=== PATIENT | female | born 1995 | race Caucasian/White ===

== ENCOUNTER 2022-04-08 12:31 | Outpatient (CLI) | payer OTHER, SELFPAY ==
[2022-04-08 19:22] LABS: SARS PCR* Negative SARS-CoV-2 (Negative)
== END 2022-04-08 12:32 | disposition home or self-care (01) ==
LOC: LONREF 12:32
PROVIDERS: PCP Family Medicine; Visit Provider Family Medicine
DX: Z20.822 Contact with and (suspected) exposure to COVID-19 (principal); R68.89 Other general symptoms and signs
CPT/HCPCS: 87635

== ENCOUNTER 2022-05-10 09:57 | Outpatient (CLI) | payer OTHER, SELFPAY ==
--- NOTE | 2022-05-10 10:15 | CRLHL7_ITS ---
For Patients: As a result of the Century Cures Act, medical imaging exams and procedure reports are released immediately into your electronic medical record. You may view this report before your referring provider. If you have questions, please contact your health care provider. RIGHT BREAST ULTRASOUND CLINICAL HISTORY: RIGHT breast palpable lump. COMPARISON: None. TECHNIQUE: Real-time ultrasound imaging of RIGHT breast with imaging documentation. Scanning was performed by both the technologist and the radiologist. FINDINGS: Targeted ultrasound performed in the area of concern in the upper outer quadrant RIGHT breast 11 o`clock 8 cm from the nipple. Normal dense fibroglandular tissue is present. No fibrocystic change or mass. IMPRESSION: Normal dense fibroglandular tissue RIGHT breast 11 o`clock 8 cm from the nipple. No evidence of malignancy. No evidence of drainable cyst. RECOMMENDATIONS: Clinical follow-up and age-appropriate screening mammography. Results and recommendations were discussed with the patient at the time of the exam. BI-RADS Category 2: Benign A lay language report of this examination will be provided to the patient. Dictated by Adolfo Stock MD @ 05/10/2022 10:49:38 AM /Dictated by: Adolfo Stock MD @ 05/10/2022 10:49:00 AM (Electronically Signed)
== END 2022-05-10 09:58 | disposition home or self-care (01) ==
PROVIDERS: PCP Family Medicine; Visit Provider Obstetrics & Gynecology
DX: N63.11 Unspecified lump in the right breast, upper outer quadrant (principal)
CPT/HCPCS: 76642

== ENCOUNTER 2022-10-04 07:44 | Outpatient (CLI) | payer OTHER, SELFPAY ==
[2022-10-04 13:53] LABS: PCR FLU A Negative PCR FLU A (Negative); PCR FLU B Negative PCR FLU B (Negative)
[2022-10-04 14:05] LABS: SARS PCR* Negative SARS-CoV-2 (Negative)
== END 2022-10-04 07:45 | disposition home or self-care (01) ==
PROVIDERS: PCP Family Medicine; Visit Provider Family Medicine
DX: R05.9 Cough, unspecified (principal)
CPT/HCPCS: 87631

== ENCOUNTER 2022-10-24 10:07 | Outpatient (CLI) | payer OTHER, SELFPAY ==
[2022-10-24 14:02] LABS: SARS PCR* Negative SARS-CoV-2 (Negative)
== END 2022-10-24 10:08 | disposition home or self-care (01) ==
LOC: LONREF 10:08
PROVIDERS: PCP Family Medicine; Visit Provider Family Medicine
DX: Z20.822 Contact with and (suspected) exposure to COVID-19 (principal)
CPT/HCPCS: 87635

== ENCOUNTER 2022-10-25 07:45 | Outpatient (CLI) | payer OTHER, SELFPAY | END 2022-10-25 07:46 | disposition home or self-care (01) | LOC: NFLDREF 10-27 11:42 | PROVIDERS: PCP Family Medicine; Referring Provider Family Medicine; Visit Provider Obstetrics & Gynecology | DX: Z01.419 Encounter for gynecological examination (general) (routine) without abnormal findings (principal); Z13.6 Encounter for screening for cardiovascular disorders; Z13.1 Encounter for screening for diabetes mellitus | CPT/HCPCS: 80061; 82947 ==

== ENCOUNTER 2022-10-25 20:54 | Outpatient (CLI) | payer OTHER, SELFPAY ==
--- NOTE | 2022-11-01 13:04 | W.PM.SLEEP ---
Sleep Study Details Details Interpreting Provider: Laura Date of Sleep Study: 10/25/22 Sleep Study Details: STUDY TYPE:? Hospital ? BMI:? 19.2 ORDERING PROVIDER:? Laura INDICATION:? Question of parasomnias versus REM behavior disorder ? SLEEP SUMMARY:? Sleep time 445 minutes, onset 3 minutes, REM latency 122 minutes, arousal index 8.1 RESPIRATORY SUMMARY:? Mean oxygen awake 97 asleep 96 minimum 82 AHI 2.2, RDI 5.1, supine REM AHI 2.4 PERIODIC LIMB MOVEMENTS OF SLEEP:? None CARDIAC:? Awake 86, asleep 79. No arrhythmias noted IMPRESSION:? Very mild obstructive sleep apnea. The overall AHI is within normal limits but the RDI is 5.1. Sleep talking was noted during the study. RECOMMENDATION: Would recommend initiation of a trial of CPAP to see if this eliminates what may be parasomnias. If not would refer to neurology for treatment of REM behavior disorder.
== END 2022-10-25 20:55 | disposition home or self-care (01) ==
LOC: SLEEP 20:55
PROVIDERS: PCP Family Medicine; Visit Provider Otolaryngology
DX: G47.33 Obstructive sleep apnea (adult) (pediatric) (principal)
CPT/HCPCS: 95810

== ENCOUNTER 2023-03-08 15:05 | Outpatient (CLI) | payer OTHER, SELFPAY | END 2023-03-08 15:06 | disposition home or self-care (01) | LOC: NFLDREF 03-10 06:25 | PROVIDERS: PCP Family Medicine; Referring Provider Family Medicine; Visit Provider Family Medicine | DX: N39.0 Urinary tract infection, site not specified (principal) | CPT/HCPCS: 87086 ==

== ENCOUNTER 2023-04-18 13:45 | Outpatient (CLI) | payer OTHER, SELFPAY ==
--- NOTE | 2023-04-18 14:00 | CRLHL7_ITS ---
For Patients: As a result of the Cures Act, medical imaging exams and procedure reports are released immediately into your electronic medical record. You may view this report before your referring provider. If you have questions, please contact your health care provider. INDICATION: First trimester scan, establish dates. COMPARISON: None. TECHNIQUE: Real-time stephens-scale imaging of the pelvis was performed. FINDINGS: Sonographic imaging demonstrates a single living intrauterine gestation. The embryo demonstrates a regular cardiac rate measuring 176 beats per minute. The embryo`s crown-rump length measurement of 1.8 cm corresponds to a gestational age of 8 weeks 2 days with a sonographic due date of 11/26/2023. There is a normal-appearing yolk sac. There are no gross abnormalities noted within the embryo at this early state of development. The gestational sac has a normal appearance. There is no evidence of a perigestational hemorrhage. The amount of fluid within the sac appears appropriate for gestational age. The cervix is closed. The myometrium appears normal. The ovaries are of normal size. Corpus luteal cyst right ovary. There are no suspicious fluid collections noted in the cul-de-sac. IMPRESSION: Normal first trimester OB ultrasound exam. Gestational age calculated at 8 weeks 2 days with a sonographic due date of 11/26/2023. Dictated by Adolfo Stock MD @ 04/19/2023 10:41:49 AM (Electronically Signed)
== END 2023-04-18 13:46 | disposition home or self-care (01) ==
LOC: US 13:45
PROVIDERS: PCP Family Medicine; Visit Provider Physician Assistant
DX: Z34.91 Encounter for supervision of normal pregnancy, unspecified, first trimester (principal); Z3A.08 8 weeks gestation of pregnancy
CPT/HCPCS: 76817; 84443; 86703; 86706; 86803; 86850; 86900; 86901; 87086; 87340

== ENCOUNTER 2023-04-18 15:03 | Outpatient (CLI) | payer OTHER, SELFPAY | END 2023-04-18 15:04 | disposition home or self-care (01) | PROVIDERS: PCP Family Medicine; Visit Provider Advanced Practice Midwife | DX: Z34.91 Encounter for supervision of normal pregnancy, unspecified, first trimester (principal); Z3A.08 8 weeks gestation of pregnancy | CPT/HCPCS: 84443; 86592; 86703; 86704; 86706; 86762; 86787; 86803; 86850; 86900; 86901; 87086; 87340 ==

== ENCOUNTER 2023-07-17 09:28 | Outpatient (CLI) | payer OTHER, SELFPAY ==
--- NOTE | 2023-07-17 09:45 | CRLHL7_ITS ---
For Patients: As a result of the Century Cures Act, medical imaging exams and procedure reports are released immediately into your electronic medical record. You may view this report before your referring provider. If you have questions, please contact your health care provider. INDICATION: survey. TECHNIQUE: Conventional transabdominal two-dimensional grayscale ultrasound examination. COMPARISON: None. FINDINGS: There is a living fetus with gestational age of 21 weeks by LMP and 21 weeks 6 days by today`s measurements. EDC based on LMP is 11/27/2023. BPD: 5.3 cm, 22 weeks 1 day Head circumference: 20.2 cm, 22 weeks 2 days Abdominal circumference: 17.7 cm, 22 weeks 4 days Femur length: 3.5 cm, 20 weeks 6 days The weight is estimated at 457 grams, the 87th percentile. The heart rate is measured at 137 beats per minute and the rhythm appears regular. The head and spine are grossly intact. No gross facial abnormality is evident. The upper lip is intact. Four cardiac chambers are demonstrated. The heart and stomach appear to be on the same side. The diaphragm is intact. Two kidneys and a bladder are demonstrated. The cord insertion is normal and three cord vessels are noted. Four extremities are demonstrated. The amniotic fluid volume is within normal limits. The placenta is anterior with no evidence of previa. The cervical length is normal at 3.9 cm. IMPRESSION: 1. Living fetus with gestational age of 21 weeks by LMP and 21 weeks 6 days by today`s measurements. EDC based on LMP is 11/27/2023. 2. No anomaly evident. Dictated by Jay Menchaca MD @ 07/20/2023 10:55:55 AM (Electronically Signed)
== END 2023-07-17 09:29 | disposition home or self-care (01) ==
LOC: US 09:30
PROVIDERS: PCP Family Medicine; Visit Provider Obstetrics & Gynecology
DX: Z34.92 Encounter for supervision of normal pregnancy, unspecified, second trimester (principal); Z3A.22 22 weeks gestation of pregnancy
CPT/HCPCS: 76805

== ENCOUNTER 2023-08-11 13:02 | Emergency (ER) | payer OTHER, SELFPAY ==
[2023-08-11] VITALS (18 sets, daily range): BP systolic 81–116; BP diastolic 61–78; PULSE 81–114; RESP 16; TEMP 36.5; O2SAT 98–100; BMI 23.2
--- NOTE | 2023-08-11 13:30 | ED.GENADULT ---
HPI - General Adult General Time Seen by Provider: 13:30 Date Seen: 08/11/23 Chief complaint: Dizziness/Vertigo Stated complaint: 25 weeks --palpitations, dizzy Time Seen by Provider: 08/11/23 13:06 Source: patient and RN notes reviewed Mode of arrival: ambulatory Limitations: no limitations History of Present Illness HPI narrative: This 28-year-old female is referred in by Ob with complaint of heart racing. This is her 3rd , is not felt this with other pregnancies. She was sick with asymptomatic COVID about 3 weeks ago. Her was sick and tested positive, she was asymptomatic but because he tested, she did. She was started on aspirin yesterday per her OB visit for having had recent COVID. She woke up this morning felt like she was going to pass out. She is describing dizziness where she feels like she might pass out in her heart is racing. Nursing staff did do orthostatic vitals prior to me coming in and her heart rate is more elevated with standing but there is no blood pressure change. She states she can feel her heart racing. It is worse with positional changes. This morning she had more sense of spinning or vertigo but not now. She is feeling some nausea. She is not feeling short of breath. Sometimes she feels like her blood sugars low, tried eating and this did not help at all. Now she is just feeling more dizzy like she might pass out if she stands up. She is not having any pain anywhere, no visual changes, no headache. Baby is active and moving, no contractions, no discharge or leaking. She is worried, states her dad has a dilated cardiomyopathy. On questioning, she has never had an echo. She had been on a beta-adiel about 4 years ago for elevated high heart rate. Related Data Home Medications Medication Instructions Recorded Confirmed vits no.[id number]-ferrous fum tab PO QDAY 04/18/23 07/17/23 28 mg iron-folic acid 800 mcg tablet (Classic ) acetaminophen 500 mg tablet 1,000 mg PO Q6H PRN 05/18/23 08/11/23 (Tylenol Extra Strength) calcium carbonate 200 mg calcium 200 mg PO BID 08/10/23 08/11/23 (500 mg) chewable tablet (Tums) famotidine 20 mg tablet (Pepcid) 20 mg PO QDAY 08/10/23 08/11/23 aspirin 81 mg capsule 81 mg PO DAILY 08/11/23 08/11/23 Previous Rx's Medication Instructions Recorded [id number] 1 cap PO TID PRN pain #30 caps 05/18/23 50 mg-300 mg-40 mg capsule (Fioricet) Allergies Allergy/AdvReac Type Severity Reaction Status Date / Time codeine AdvReac Intermediate Vomiting Verified 08/11/23 13:16 tramadol AdvReac Intermediate upset Verified 08/11/23 13:16 stomach Review of Systems Status of ROS: Reports: 6 or more systems reviewed and unremarkable except as noted in History and below [facility] Medical History Greater trochanteric pain syndrome ?M25.559 - Pain in unspecified hip (ICD-10) Trochanteric bursitis of left hip ?M70.62 - Trochanteric bursitis, left hip (ICD-10) Hypothyroidism ?E03.9 - Hypothyroidism, unspecified (ICD-10) IUD (intrauterine device) in place ?Z97.5 - Presence of (intrauterine) contraceptive device (ICD-10) Breast lump on right side at 10 o'clock position ?N63.11 - Unspecified lump in the right breast, upper outer quadrant (ICD-10) Surgical History S/P tonsillectomy and adenoidectomy (02/09/10) ?Z90.89 - Acquired absence of other organs (ICD-10) H/O wisdom tooth extraction (~2009) ?K08.409 - Partial loss of teeth, unspecified cause, unspecified class (ICD-10) Family History Aunt Coronary artery disease Father Coronary artery disease High blood pressure Uncle Coronary artery disease Bipolar disorder Mother High blood pressure Depression Grandfather Depression Maternal Grandmother Bipolar disorder Social History Narrative: SOCIAL? ? Education: college diploma? ? Work: service center assistant at [employer] ? ? Partner: Kb, , calloway/catering truck operator? ? Lives with: Kb. kids? ? Pets: cat, farm animals? ? Abuse: Denies past. Unable to assess current, partner present? ? Special Diet: Denies? ? Ok with a blood transfusion: yes? ? Culture or sikh beliefs: denies? RISK FACTORS? ? Exercise Times/wk: denies? ? Depression/Anxiety: both.? ? Previous Treatments Previously taken lexapro. Stopped 4 months ago, doing good. Therapy: has done previously. ELLA: 6 PHQ 9: 2? ? Seat Belt Use: Routinely ? Smoking: Denies present? ?Smoked in high school for 3 years, 4 cigs per day Alcohol/day: Denies while ? ? Caffeine: under 200 mg? ? Drug Use: Marijuana in high school? ? Cis-gender, heterosexual woman What is your current living situation?: I presently have a place to live Problems where you live: no known problems In the past 12 months, utilities in danger of being shut off: no In the past 12 mos, have been you worried that your food would run out before you had money to buy more?: never true In the past 12 mos, the food you bought just didn't last and you didn't have money to buy more?: never true Smoking Status: Former smoker How often do you have a drink containing alcohol: never AUDIT-C Alcohol total score: 0 Non-prescribed substance use: denies use How often does anyone, including family, friends and others, physically hurt you: never How often does anyone, including family, friends and others, insult or talk down to you: never How often does anyone, including family, friends and others, threaten you with harm: never How often does anyone, including family, friends and others, scream or curse at you: never Little interest or pleasure in doing things: not at all Feeling down, depressed, or hopeless: not at all Exam Const: Vital Signs, click to edit/add: Vital Signs - 24 hr 08/11/23 13:10 08/11/23 13:31 08/11/23 13:43 Temperature 97.7 F Pulse Rate 96 Pulse Rate [Pulse Oximeter] 111 H Pulse Rate [orthos tatic lying] 98 Pulse Rate [orthos tatic sitting] 113 H Pulse Rate [orthos tatic standing] 114 H Respiratory Rate 16 Blood Pressure Blood Pressure [Ri ght Upper Arm] 102/68 Blood Pressure [or thostatic lying] 99/63 Blood Pressure [or thostatic sitting] 103/69 Blood Pressure [or thostatic standing ] 100/63 Pulse Oximetry 99 99 Oxygen Delivery Me thod Room Air 08/11/23 13:45 08/11/23 14:00 08/11/23 14:01 Temperature Pulse Rate 100 97 Pulse Rate [Pulse Oximeter] Pulse Rate [orthos tatic lying] Pulse Rate [orthos tatic sitting] Pulse Rate [orthos tatic standing] Respiratory Rate Blood Pressure 99/72 Blood Pressure [Ri ght Upper Arm] Blood Pressure [or thostatic lying] Blood Pressure [or thostatic sitting] Blood Pressure [or thostatic standing ] Pulse Oximetry 99 99 Oxygen Delivery Me thod 08/11/23 14:27 Temperature Pulse Rate 92 Pulse Rate [Pulse Oximeter] Pulse Rate [orthos tatic lying] Pulse Rate [orthos tatic sitting] Pulse Rate [orthos tatic standing] Respiratory Rate Blood Pressure Blood Pressure [Ri ght Upper Arm] Blood Pressure [or thostatic lying] Blood Pressure [or thostatic sitting] Blood Pressure [or thostatic standing ] Pulse Oximetry 99 Oxygen Delivery Me thod Patient is alert, interactive, no apparent distress. She does not have blood pressure changes that orthostatic but her pulse does jump up with standing. She is alert, interactive, no apparent distress. Pupils equal round reactive to light extraocular muscles intact. There is some find beating left nystagmus which does attenuate, I see no right beating nystagmus. Symmetrical facial function speech is normal, neck is supple, no cervical adenopathy, no thyromegaly masses or nodules CV is currently fast but regular, no murmur, normal S1-S2, no S3-S4. Lungs are clear, good air entry, no wheezing or crackles. Abdomen is gravid but soft, nontender. She has no lower extremity edema. Documenting provider has reviewed patient's vital signs: yes Course Course ED Course: Hilda his symptomatic with tachycardia. Given she had recent COVID, do think we need to consider chest CT PE protocol. Will get baseline labs, will initiate a L of lactated Ringer's. When she rests her heart rate does go down back into the 90s. She seems to be beyond symptomatic than would just go with . This could be post COVID arrhythmia issues as well. Will watch sure, will do full complement of labs including troponin. Clinically she does not have any shortness of breath but have reviewed with her that we cannot rule out pulmonary emboli based on lack of shortness of breath/hypoxia. Currently she is describing more dizziness but did states this morning it felt more like spinning. At this time, do not think we need to consider any MRI imaging of her brain but will continue to monitor her here. Reevaluation(s) Time of Reevaluation #1: 15:02 Reevaluation #1: Reviewed normal labs and normal chest CT PE protocol with patient, did discuss hemoglobin 11.9, 0.1 points below normal, this still could be within statistical air but would not be abnormal to have anemia and develop which may warrant further following. Her heart rates in the 90s, she is resting. She just started her IV fluids. We are going to see how she feels after the IV fluids, have her stand up and move around after that. Of note, she was able to ambulate to and from chest CT imaging in Radiology. Time of Reevaluation #2: 16:11 Reevaluation #2: Clear was feeling better after fluids. She did ambulate around the ER, pulse went up to 110, was not feeling to the symptom she had felt before. Does feel better per nursing staff. Reviewed that her pulse is going up to 110 is not necessarily abnormal physiologically in a . I did go back and look in her chart, on June 15 which would be prior to her COVID her pulse was 109, pulse was 110 yesterday on her clinic visit. We are not seen any concerning tachycardia or arrhythmia here. If she continues to feel symptoms, would have her nutritional services director consider getting a Holter monitor or ZIO patch and potentially cardiology consultation if needed. At this time, she is safe to discharge to home. Vital Signs Vital signs: Initial Vital Signs Temperature 97.7 F 08/11/23 13:10 Temperature Source Temporal Artery Scan 08/11/23 13:10 Pulse Rate 111 H 08/11/23 13:10 Pulse Rhythm Regular 08/11/23 13:10 Pulse Strength 3+ Normal 08/11/23 13:10 Respiratory Rate 16 08/11/23 13:10 Blood Pressure 102/68 08/11/23 13:10 Blood Pressure Mean 79 08/11/23 13:10 Blood Pressure Position Sitting 08/11/23 13:10 Pulse Oximetry 99 08/11/23 13:10 Oxygen Delivery Method Room Air 08/11/23 13:10 Vital Signs Temperature 97.7 F 08/11/23 13:10 Pulse Rate 111 H 08/11/23 13:10 Respiratory Rate 16 08/11/23 13:10 Blood Pressure 102/68 08/11/23 13:10 Pulse Oximetry 99 08/11/23 13:10 Oxygen Delivery Method Room Air 08/11/23 13:10 Temperature 97.7 F 08/11/23 13:10 Pulse Rate 92 08/11/23 14:27 Respiratory Rate 16 08/11/23 13:10 Blood Pressure 99/72 08/11/23 14:01 Pulse Oximetry 99 08/11/23 14:27 Oxygen Delivery Method Room Air 08/11/23 13:10 Medications Administered Medications: Discontinued Medications Generic Name Dose Route Start Last Admin Trade Name Zaneq PRN Reason Stop Dose Admin Lactated Ringer's 1,000 mls @ 500 mls/hr 08/11/23 13:47 08/11/23 16:00 Lactated Ringers 1000 Ml IV 08/11/23 15:46 Infused .Q2H FARIHA Infusion Medical Decision Making Lab Data Lab results reviewed: Yes I reviewed the patient's lab results Labs: Lab Results 08/11/23 Range/Units 13:55 WBC 6.71 (4.50-11.00) K/uL RBC 3.72 L (4.00-5.20) m/uL Hgb 11.9 L (12.0-16.0) gm/dL Hct 34.9 (33.0-51.0) % MCV 94 (80-100) fL MCH 32 (26-34) pg MCHC 34 (32-36) gm/dL RDW Coeff of Marco 13.8 (11.5-15.5) % Plt Count 177 (140-440) K/uL Neut % (Auto) 76.3 H (42.0-72.0) % Lymph % (Auto) 15.5 L (20-44) % Pierce % (Auto) 6.3 (0.0-11.0) % Eos % (Auto) 1.5 (0.0-7.0) % Baso % (Auto) 0.3 (0.0-3.0) % Neut # (Auto) 5.10 (1.7-7.0) K/uL Lymph # (Auto) 1.00 (0.90-2.90) K/uL Pierce # (Auto) 0.40 (0.00-0.90) K/UL Eos # (Auto) 0.10 (0.00-0.50) K/uL Baso # (Auto) 0.02 (0.00-0.30) K/uL Abs Immat Gran (auto) 0.01 (0.00-0.30) K/uL Imm/Tot Granulo (auto) 0.1 % VBG pH 7.398 (7.32-7.43) VBG pCO2 41 (40-50) mmHG VBG pO2 33.0 (25-47) mmHG VBG HCO3 25 (21-28) mmol/L Sodium 135 (135-149) mmol/L Potassium 3.7 (3.6-5.1) mmol/L Chloride 106 (96-114) mmol/L Carbon Dioxide 21 (20-32) mmol/L Anion Gap 8 (7-15) mEq/L BUN 9 (5-24) mg/dL Creatinine 0.5 (0.5-1.5) mg/dL Estimated Creat Clear 144.65 Estimated GFR 131 ml/min Glucose 106 (60-115) mg/dL Lactate 1.2 (0.5-1.9) mmol/L Calcium 8.6 (8.4-10.6) mg/dL Magnesium 2.1 (1.5-2.6) mg/dL Total Bilirubin 0.5 (0.1-1.5) mg/dL AST 24 (12-35) U/L ALT 19 (4-35) U/L Alkaline Phosphatase 35 L (40-150) U/L Troponin I 0.02 (0.01-0.04) ng/mL NT-Pro-B Natriuret Pep 62 pg/mL Total Protein 6.6 (6.0-8.3) g/dL Albumin 3.6 (3.3-5.0) g/dL Imaging Data CT scan - chest: Attestation: I have reviewed the pertinent imaging results. Radiologist's impression: Patient: IHLDA SIERRA Facility:?[facility] Patient ID:?[id number] Site Patient ID:?[id number]. Site :?[id number] Study:?CT Chest Angio w/ 95cc [id number] 2:25:45 PM Ordering Physician:Giovany Leigh Final Report: INDICATION: Tachycardia. TECHNIQUE: CT chest PE was acquired with 95 cc Isovue 370 IV contrast. COMPARISON: None. FINDINGS: Heart and vasculature: Contrast opacification of the pulmonary arterial tree is adequate. No sign of pulmonary embolism. Heart size is normal. Thoracic aorta and pulmonary artery are normal in caliber. Lungs and pleura: No suspicious nodules or infiltrates. Scattered atelectasis. No pleural effusions, pleural thickening, or pneumothorax. Lymph nodes/mediastinum: No mediastinal, hilar, or axillary adenopathy. Chest wall: No masses. Upper abdomen: No acute or significant findings. Bones: Unremarkable for age. IMPRESSION: No pulmonary embolism. No focal consolidations. Please note that all CT scans at this facility use dose modulation, iterative reconstruction, and/or weight-based dosing when appropriate to reduce radiation dose to as low as reasonably achievable. Dictated by Solomon Galo MD @ 08/11/2023 2:32:47 PM (Electronic Signature) ECG Data Attestation: I personally reviewed and interpreted this ECG as follows: (Normal sinus rhythm, 92 beats per minute. No arrhythmia no definitive ischemic change. QT corrected 437 milliseconds.) Prior ECG tracings: not available for review Discharge Plan Discharge Clinical Impression: Dizziness, Racing heart beat Qualifiers: Weeks of gestation: 28 weeks Qualified Code(s): Z3A.28 - 28 weeks gestation of Patient Disposition: Home, Self-Care Condition: Stable Instructions: Heart Palpitations (ED), Tachycardia (ED) Additional Instructions: Can proceed with activity as tolerated it but would not try to be too aggressive with activity at this time. Need to stay well hydrated, drink plenty of fluids. Recheck with Ob early next week. If you continue to feel palpitations or irregularities with your heartbeat, could consider having a Holter or even possibly a ZIO patch through Cardiology placed. Obviously, if you feel you are worsening, have further concerns in the interim, do consider returning to the ER for re-evaluation. Activity Level: Activity as Tolerated Discharge Diet: Regular Prescriptions: No Action famotidine [Pepcid] 20 mg tablet 20 mg PO QDAY calcium carbonate [Tums] 200 mg calcium (500 mg) tablet,chewable 200 mg PO BID Classic 28 mg iron- 800 mcg tablet PO QDAY acetaminophen [Tylenol Extra Strength] 500 mg tablet 1,000 mg PO Q6H PRN [id number]-mzurdfrvbupmw-vhej [Fioricet] 50-300-40 mg capsule 1 cap PO TID PRN (Reason: pain) Qty: 30 0RF Rx Instructions: OK to substitute tablets. aspirin 81 mg capsule 81 mg PO DAILY Follow Up/Referrals: Aniceto Rodríguez MD [Primary Care Provider] - Stand Alone Forms: [employer] Info Instructions
--- NOTE | 2023-08-11 13:45 | CRLHL7_ITS ---
For Patients: As a result of the Century Cures Act, medical imaging exams and procedure reports are released immediately into your electronic medical record. You may view this report before your referring provider. If you have questions, please contact your health care provider. INDICATION: Tachycardia. TECHNIQUE: CT chest PE was acquired with 95 cc Isovue 370 IV contrast. COMPARISON: None. FINDINGS: Heart and vasculature: Contrast opacification of the pulmonary arterial tree is adequate. No sign of pulmonary embolism. Heart size is normal. Thoracic aorta and pulmonary artery are normal in caliber. Lungs and pleura: No suspicious nodules or infiltrates. Scattered atelectasis. No pleural effusions, pleural thickening, or pneumothorax. Lymph nodes/mediastinum: No mediastinal, hilar, or axillary adenopathy. Chest wall: No masses. Upper abdomen: No acute or significant findings. Bones: Unremarkable for age. IMPRESSION: No pulmonary embolism. No focal consolidations. Please note that all CT scans at this facility use dose modulation, iterative reconstruction, and/or weight-based dosing when appropriate to reduce radiation dose to as low as reasonably achievable. Dictated by Solomon Galo MD @ 08/11/2023 2:32:47 PM (Electronically Signed)
[2023-08-11 14:00] LABS: HCO3 VBG 25 mmol/L (21-28); Lactate* 1.2 mmol/L (0.5-1.9); PCO2 VBG 41 mmHG (40-50); pH VBG 7.398 (7.32-7.43)
[2023-08-11 14:06] LABS: Basophils Absolute Auto 0.02 K/uL (0.00-0.30); Basophils Percent Auto 0.3 % (0.0-3.0); Eosinophils Percent Auto 1.5 % (0.0-7.0); Hematocrit 34.9 % (33.0-51.0); Hemoglobin* 11.9 gm/dL (12.0-16.0); Immature Granulocytes Abs Auto 0.01 K/uL (0.00-0.30); Immature Granulocytes Pct Auto 0.1 %; Lymphocytes Percent Auto 15.5 % (20-44); Mean Corpuscular HGB Conc 34 gm/dL (32-36); Mean Corpuscular Hemoglobin 32 pg (26-34); Mean Corpuscular Volume 94 fL (80-100); Monocytes Percent Auto 6.3 % (0.0-11.0); Neutrophils Percent Auto 76.3 % (42.0-72.0); Platelet Count* 177 K/uL (140-440); RDW Coefficient of Variation % 13.8 % (11.5-15.5); Red Blood Count 3.72 m/uL (4.00-5.20); White Blood Count* 6.71 K/uL (4.50-11.00)
[2023-08-11 14:07] LABS: Slide Review Reflex No
[2023-08-11] MEDS: LACTATED RINGERS 1000 ML 1,000 ML 500 ML IV (14:20)
[2023-08-11 14:21] LABS: Albumin* 3.6 g/dL (3.3-5.0); Chloride* 106 mmol/L (96-114)
[2023-08-11 14:22] LABS: Potassium* 3.7 mmol/L (3.6-5.1); Sodium* 135 mmol/L (135-149)
[2023-08-11 14:24] LABS: Anion Gap 8 mEq/L (7-15); Aspartate Amino Transferase* 24 U/L (12-35); Bilirubin Total* 0.5 mg/dL (0.1-1.5); Blood Urea Nitrogen* 9 mg/dL (5-24); Carbon Dioxide* 21 mmol/L (20-32); Creatinine* 0.5 mg/dL (0.5-1.5); Est. Creatinine Clearance* 144.65; Estimated Glomerular Filt Rate 131 ml/min; Total Protein* 6.6 g/dL (6.0-8.3)
[2023-08-11 14:25] LABS: Alanine Aminotransferase* 19 U/L (4-35); Alkaline Phosphatase* 35 U/L (40-150); Calcium* 8.6 mg/dL (8.4-10.6); Glucose* 106 mg/dL (60-115); Magnesium* 2.1 mg/dL (1.5-2.6)
[2023-08-11 14:36] LABS: Troponin I* 0.02 ng/mL (0.01-0.04)
[2023-08-11 14:38] LABS: NT Pro B Type NatriureticPept* 62 pg/mL
--- NOTE | 2023-08-11 15:40 | ED.NURSE ---
pt blood pressure at 1531 was 81/61 MAP (67). comic book writer saw on monitor and entered pt to room for further evaluation. pt was laying on side, comic book writer had pt do a micro turn towards supine and rechecked pt blood pressure. Blood pressure at 1537 was 116/78 MAP (90).
--- NOTE | 2023-08-11 16:08 | ED.NURSE ---
ambulated pt around the nurses station per MD verbal order, pt denies any dizziness or feelings of their heart racing. pt back in bed, MD notified.
== END 2023-08-11 16:37 | disposition home or self-care (01) ==
PROVIDERS: Emergency Provider Family Medicine; PCP Family Medicine
DX: O26.893 Other specified pregnancy related conditions, third trimester (principal); R42 Dizziness and giddiness; R00.0 Tachycardia, unspecified
CPT/HCPCS: 36415; 71275; 80053; 82803; 83605; 83735; 83880; 84484; 85025; 93005; 94761; 96360; 99284; 99285; J7120; Q9967

== ENCOUNTER 2023-09-06 08:45 | Outpatient (CLI) | payer OTHER, SELFPAY | END 2023-09-06 08:46 | disposition home or self-care (01) | LOC: NFLDREF 09-22 09:46 | PROVIDERS: PCP Family Medicine; Referring Provider Family Medicine; Visit Provider Obstetrics & Gynecology | DX: Z34.90 Encounter for supervision of normal pregnancy, unspecified, unspecified trimester (principal) | CPT/HCPCS: 86592 ==

== ENCOUNTER 2023-10-30 08:55 | Outpatient (CLI) | payer OTHER, SELFPAY ==
--- NOTE | 2023-10-30 09:15 | US_ITS ---
Patient: [facility] Facility:?[facility] Patient ID:?[id number] Site Patient ID:?[id number]. Site :?1995 Study:?US-OB Pelvis FOLLOW UP-10/30/2023 9:38:01 AM Ordering Physician:?JOLENE DE LA PAZ Final Report: INDICATION: COVID in TECHNIQUE: Limited transabdominal two-dimensional stephens-scale ultrasound examination. COMPARISON: None FINDINGS: There is a living fetus in cephalic lie with gestational age of 36 weeks by LMP and 37 weeks 1 day by today`s measurements. EDC based on LMP is 11/27/2023. BPD: 9.3 cm, 37 weeks 4 days Head circumference: 33.4 cm, 38 weeks 1 day Abdominal circumference: 34.5 cm, 38 weeks 3 days Femur length: 6.7 cm, 34 weeks 4 days The weight is estimated at 3192 grams, the 86th percentile. The heart rate is measured at 127 beats per minute and the rhythm appears regular. The amniotic fluid volume is within normal limits with single deepest pocket of 5.9 cm. The placenta is anterior and superior to the cervical os. There is no evidence of previa. A small pericardial effusion is noted. IMPRESSION: 1. Living fetus in cephalic lie with gestational age of 36 weeks by LMP and 37 weeks 1 day by today`s measurements. EDC based on LMP is 11/27/2023. 2. weight estimated at 3192 grams, 86th percentile. 3. Small pericardial effusion. Dictated by Jay Menchaca MD @ 10/30/2023 1:25:52 PM Signed by:?Jay Menchaca MD @10/30/2023 1:25:52 PM (Electronic Signature)
== END 2023-10-30 08:56 | disposition home or self-care (01) ==
LOC: US 08:56
PROVIDERS: PCP Family Medicine; Visit Provider Obstetrics & Gynecology
DX: O98.513 Other viral diseases complicating pregnancy, third trimester (principal); Z3A.36 36 weeks gestation of pregnancy; J90 Pleural effusion, not elsewhere classified
CPT/HCPCS: 76816

== ENCOUNTER 2023-10-30 11:09 | Outpatient (CLI) | payer OTHER, SELFPAY ==
[2023-10-31 08:35] LABS: Strep B DNA Probe Negative (Negative)
[2023-10-31 08:41] LABS: Strep B Susceptibility Needed? No
== END 2023-10-30 11:10 | disposition home or self-care (01) ==
LOC: NFLDREF 11:09
PROVIDERS: PCP Family Medicine; Visit Provider Obstetrics & Gynecology
DX: Z34.93 Encounter for supervision of normal pregnancy, unspecified, third trimester (principal)
CPT/HCPCS: 87081; 87653

== ENCOUNTER 2023-11-07 09:43 | Outpatient (CLI) | payer OTHER, SELFPAY ==
--- NOTE | 2023-11-07 11:30 | US_ITS ---
Patient: [facility] Facility:?[facility] Patient ID:?[id number] Site Patient ID:?[id number]. Site :?1995 Study:?US-OB Pelvis LIMITED-11/07/2023 10:07:08 AM Ordering Physician:?ZAK VELASQUEZ Final Report: INDICATION: KAIT LEVEL FOR LEAKAGE COMPARISON: 10/30/2023 TECHNIQUE: Real-time stephens-scale imaging of the pelvis was performed. FINDINGS: Vertex position. Anterior placenta. heart rate 138 beats per minute. Amniotic fluid normal with single deepest pocket 7.8 cm. KAIT measures 20.4 cm. IMPRESSION: KAIT 20.4 cm. Dictated by Adolfo Stock MD @ 11/07/2023 12:44:00 PM Signed by:?Adolfo Stock MD @11/07/2023 12:44:00 PM (Electronic Signature)
== END 2023-11-07 09:44 | disposition home or self-care (01) ==
LOC: US 09:43
PROVIDERS: PCP Family Medicine; Visit Provider Obstetrics & Gynecology
DX: O26.899 Other specified pregnancy related conditions, unspecified trimester (principal); N89.8 Other specified noninflammatory disorders of vagina
CPT/HCPCS: 76815

== ENCOUNTER 2023-11-13 17:21 | Outpatient (CLI) | payer OTHER, SELFPAY ==
[2023-11-13 17:35] VITALS: PULSE 91; O2SAT 100
[2023-11-13 17:37] VITALS: TEMP 37
[2023-11-13 17:38] VITALS: BP 110/66; PULSE 91
--- NOTE | 2023-11-13 21:03 | PC.OBNST ---
NST Note NST Note Start: 11/13/23 17:39 Freq: ONCE Status: Active Protocol: Document 11/13/23 17:39 [facility] (Rec: 11/13/23 21:03 [facility] [id number]) NST Note 3 Para (# of births) 2 EDC 11/27/23 Gestational Age In Weeks & Days 38 Weeks & 0 Days Patient Presented with Complaint(s) of Contractions/cramping Reactive Yes Appropriate for Gestational Age Yes DOMINGA Rogers RN Date 11/13/23 Reactive Yes Appropriate for Gestational Age Yes DOMINGA Vazquez Date 11/13/23 OB NST charge Yes Complete NST Note via Write Note Yes The provider's electronic signature indicates the NST is reactive/appropriate for gestational age. *Note to provider: If an addendum is required, open the patient's chart and click on the note under the Nurse/Allied Health tab.
== END 2023-11-13 20:50 | disposition home or self-care (01) ==
LOC: OB OUT 17:22 → OB 17:29
PROVIDERS: PCP Family Medicine; Visit Provider Obstetrics & Gynecology
DX: O47.1 False labor at or after 37 completed weeks of gestation (principal); Z3A.38 38 weeks gestation of pregnancy
CPT/HCPCS: 59025; G0463

== ENCOUNTER 2023-11-21 00:40 | Inpatient (IN) | payer OTHER, SELFPAY ==
[2023-11-21] VITALS (34 sets, daily range): BP systolic 97–130; BP diastolic 52–81; PULSE 80–110; RESP 16; TEMP 36.6–37.1; O2SAT 85–100; BMI 25.9
[2023-11-21] MEDS: LACTATED RINGERS 1000 ML 1,000 ML 900 ML IV (02:05)
[2023-11-21] MEDS: fentaNYL 100 MCG/2 ML inj 25 MCG INTRATHECA ×2 (02:49→05:40)
--- NOTE | 2023-11-21 02:49 | PM.ANBPRC ---
[facility] Medical History (Updated 11/17/23 @ 19:38 by Dionna Kiran CNM) Bleeding in early ?O20.9 - Hemorrhage in early , unspecified (ICD-10) Greater trochanteric pain syndrome ?M25.559 - Pain in unspecified hip (ICD-10) Trochanteric bursitis of left hip ?M70.62 - Trochanteric bursitis, left hip (ICD-10) Hypothyroidism ?E03.9 - Hypothyroidism, unspecified (ICD-10) IUD (intrauterine device) in place ?Z97.5 - Presence of (intrauterine) contraceptive device (ICD-10) Breast lump on right side at 10 o'clock position ?N63.11 - Unspecified lump in the right breast, upper outer quadrant (ICD-10) Surgical History S/P tonsillectomy and adenoidectomy (02/09/10) ?Z90.89 - Acquired absence of other organs (ICD-10) H/O wisdom tooth extraction (~2009) ?K08.409 - Partial loss of teeth, unspecified cause, unspecified class (ICD-10) Family History Aunt Coronary artery disease Father Coronary artery disease High blood pressure Uncle Coronary artery disease Bipolar disorder Mother High blood pressure Depression Grandfather Depression Maternal Grandmother Bipolar disorder Social History Narrative: SOCIAL? ? Education: college diploma? ? Work: accounting manager assistant controller at [employer] ? ? Partner: Kb, , calloway/truck driver rubbish collector? ? Lives with: Kb. kids? ? Pets: cat, farm animals? ? Abuse: Denies past. Unable to assess current, partner present? ? Special Diet: Denies? ? Ok with a blood transfusion: yes? ? Culture or congregation beliefs: denies? RISK FACTORS? ? Exercise Times/wk: denies? ? Depression/Anxiety: both.? ? Previous Treatments Previously taken lexapro. Stopped 4 months ago, doing good. Therapy: has done previously. ELLA: 6 PHQ 9: 2? ? Seat Belt Use: Routinely ? Smoking: Denies present? ?Smoked in high school for 3 years, 4 cigs per day Alcohol/day: Denies while ? ? Caffeine: under 200 mg? ? Drug Use: Marijuana in high school? ? Cis-gender, heterosexual woman What is your current living situation?: I presently have a place to live Problems where you live: no known problems In the past 12 months, utilities in danger of being shut off: no In the past 12 mos, have been you worried that your food would run out before you had money to buy more?: never true In the past 12 mos, the food you bought just didn't last and you didn't have money to buy more?: never true Smoking Status: Former smoker How often do you have a drink containing alcohol: never AUDIT-C Alcohol total score: 0 Non-prescribed substance use: denies use How often does anyone, including family, friends and others, physically hurt you: never How often does anyone, including family, friends and others, insult or talk down to you: never How often does anyone, including family, friends and others, threaten you with harm: never How often does anyone, including family, friends and others, scream or curse at you: never Little interest or pleasure in doing things: not at all Feeling down, depressed, or hopeless: not at all Meds Home Medications and Allergies Home Medications Medication Instructions Recorded Confirmed Type vits no.126-ferrous fum 1 tab PO QDAY PRN 04/18/23 11/21/23 History 28 mg iron-folic acid 800 mcg tablet (Classic ) acetaminophen 500 mg tablet 1,000 mg PO Q6H PRN 05/18/23 11/21/23 History (Tylenol Extra Strength) calcium carbonate (Tums) 200 mg PO BID 08/10/23 11/21/23 History famotidine 20 mg tablet (Pepcid) 20 mg PO QDAY 08/10/23 11/21/23 History Allergies Allergy/AdvReac Type Severity Reaction Status Date / Time codeine AdvReac Intermediate Vomiting Verified 11/21/23 02:14 tramadol AdvReac Intermediate upset Verified 11/21/23 02:14 stomach Results Vital Signs Vital Signs: Last Vital Signs Pulse 86 11/21/23 02:06 BP 126/77 11/21/23 02:06 Pulse Ox 100 11/21/23 02:45 Weight: 68.492 kg Height: 162.56 cm Anesthesia Procedures Intrathecal Start Time: 02:40 Stop Time: 02:55 Start Date: 11/21/23 Stop Date: 11/21/23 Reason for Block: procedure for pain Patient Position: sitting Performed By: Tonio Roche Preanesthetic Checklist: IV checked, risks and benefits discussed, monitors and equipment checked, pre-op evaluation, timeout performed and anesthesia consent Prep: chlorhexidine gluconate Monitoring: blood pressure monitoring, continuous pulse oximetry and heart rate Approach: midline Vertebral Space: lumbar (1-5) Needle Type: Sprotte Injection Technique: single-shot Needle gauge: 24 Needle Length (cm): 10 cm Events: cerebrospinal fluid
[2023-11-21 03:13] LABS: Basophils Absolute Auto 0.02 K/uL (0.00-0.30); Basophils Percent Auto 0.2 % (0.0-3.0); Eosinophils Absolute Auto 0.12 K/uL (0.00-0.50); Eosinophils Percent Auto 1.2 % (0.0-7.0); Hematocrit 37.9 % (33.0-51.0); Hemoglobin* 13.1 gm/dL (12.0-16.0); Immature Granulocytes Abs Auto 0.04 K/uL (0.00-0.30); Immature Granulocytes Pct Auto 0.4 %; Lymphocytes Absolute Auto 2.23 K/uL (0.90-2.90); Mean Corpuscular HGB Conc 35 gm/dL (32-36); Mean Corpuscular Hemoglobin 32 pg (26-34); Mean Corpuscular Volume 93 fL (80-100); Monocytes Percent Auto 6.1 % (0.0-11.0); Neutrophils Absolute Auto 7.11 K/uL (1.7-7.0); Neutrophils Percent Auto 70.1 % (42.0-72.0); Platelet Count* 172 K/uL (140-440); RDW Coefficient of Variation % 13.7 % (11.5-15.5); Red Blood Count 4.09 m/uL (4.00-5.20); White Blood Count* 10.14 K/uL (4.50-11.00)
[2023-11-21 03:16] LABS: Slide Review Reflex No
[2023-11-21] MEDS: LACTATED RINGERS 1000 ML 1,000 ML 125 ML IV (03:32)
--- NOTE | 2023-11-21 03:52 | P.LDBA_ITS ---
Subjective History of Present Illness Time Seen by Provider: 03:52 Date Seen: 11/21/23 Narrative: Patient is being admitted to Labor and Delivery for active spontaneous labor. She is a 28 year old at 39.1 weeks gestation. Her full history and physical was dictated by Dr. BERMUDEZ on 11/07/23. Please see this for details. She presents with strong regular contractions and on arrival the L&D she was noted to be 6 cm by RN exam. ITN placed at 0245. Possible SROM during ITN placement. Specific Issues/Plans Partner: Kb. Son: Castillo. Daughter: Jo. Baby: boy, undecided on name MA here at [facility] H&P by LARA on 11/07/23 # Anxiety & depression * previously treated with lexapro, stopped about 4 months prior to . Has also done therapy before. No meds this . # Daughter (Jo) has a bicuspid aortic valve. * echocardiogram: Within normal limits, recommend echo in child at ages 3- 5yo * US at 36 weeks shows incidental pericardial effusion. Sent back to [place] for comment prior to delivery:Completed on 11/06/23: no effusion or any other abnormality noted. #Hx of hypothyroid, never treated w/ medication * TSH WNL at [facility] #Covid in 07/20/23 @ 21wks gestation * 36 week growth US (patient counseled risks/benefits, desires growth): EFW at 36 weeks: 3192 g = 86% . AC> 97%, BPD 92%, HC 72%, FL 13%. #Suspected macrosomia. * US here at 36 weeks: 3192 g = 86% . AC> 97%, BPD 92%, HC 72%, FL 13%. * US at [place] 11/08: EFW 3822 g = 97%. FL 19%, HC 96%, AC greater than 98%, BPD 98%. MVP 2.9 cm. Covid vaccination: 3 vaccines, booster 05/15/2023 Flu vaccination: received Tdap: 09/20/23 RSV: NA Varicella non-immune OB - Problem Based A/P Additional Plan (1) : Status: Inactive (2) macrosomia: Status: Acute Plan - AROM bulgy bag at 0347 - Expectant management for now OB Exam Physical Exam Vital signs: Temp Pulse BP Pulse Ox 97.8 F 83 115/73 85 L 11/21/23 02:06 11/21/23 03:37 11/21/23 03:37 11/21/23 03:02 Narrative: Physical exam: General: No acute distress Psych: Alert and oriented x3, full affect HEENT: Normocephalic, atraumatic Lungs: Unlabored breathing Neuro: No focal deficit. Mentating appropriately Pelvic exam: 8.5/80/0, bulging bag
--- NOTE | 2023-11-21 05:31 | PM.OBPNL ---
Subjective Time Seen by Provider: 05:30 Date Seen: 11/21/23 Narrative: Patient having poor pain control with ITN. SVE: anterior lip that's reducible with pushing/100/0. Discussed if she wants to try pushing vs having another ITN. She would like to try pushing first and see how she feels. After 3 sets of pushes she was unable to tolerate the pain or push effectively due to pain. Anesthesia was contacted for assistance in pain control. She desires a repeat ITN. NST: 130s, moderate variability, + accel, - decel. Cat I [place]: Q1-2 minutes Objective Vital Signs: Last Vital Signs Temp 97.8 F 11/21/23 02:06 Pulse 98 11/21/23 04:53 BP 104/54 L 11/21/23 04:53 Pulse Ox 85 L 11/21/23 03:02
--- NOTE | 2023-11-21 05:46 | P.ANBPRC_ITS ---
[facility] Medical History (Updated 11/17/23 @ 19:38 by Dionna Kiran CNM) Bleeding in early ?O20.9 - Hemorrhage in early , unspecified (ICD-10) Greater trochanteric pain syndrome ?M25.559 - Pain in unspecified hip (ICD-10) Trochanteric bursitis of left hip ?M70.62 - Trochanteric bursitis, left hip (ICD-10) Hypothyroidism ?E03.9 - Hypothyroidism, unspecified (ICD-10) IUD (intrauterine device) in place ?Z97.5 - Presence of (intrauterine) contraceptive device (ICD-10) Breast lump on right side at 10 o'clock position ?N63.11 - Unspecified lump in the right breast, upper outer quadrant (ICD-10) Surgical History S/P tonsillectomy and adenoidectomy (02/09/10) ?Z90.89 - Acquired absence of other organs (ICD-10) H/O wisdom tooth extraction (~2009) ?K08.409 - Partial loss of teeth, unspecified cause, unspecified class (ICD- 10) Family History Aunt Coronary artery disease Father Coronary artery disease High blood pressure Uncle Coronary artery disease Bipolar disorder Mother High blood pressure Depression Grandfather Depression Maternal Grandmother Bipolar disorder Social History Narrative: SOCIAL? ? Education: college diploma? ? Work: sales assistant entertainment and media at [employer] ? ? Partner: Kb, , calloway/truck engine technician? ? Lives with: Kb. kids? ? Pets: cat, farm animals? ? Abuse: Denies past. Unable to assess current, partner present? ? Special Diet: Denies? ? Ok with a blood transfusion: yes? ? Culture or islam beliefs: denies? RISK FACTORS? ? Exercise Times/wk: denies? ? Depression/Anxiety: both.? ? Previous Treatments Previously taken lexapro. Stopp ed 4 months ago, doing good. Therapy: has done previously. ELLA: 6 PHQ 9: 2? ? Seat Belt Use: Routinely ? Smoking: Denies present? ?Smoked in high school for 3 years, 4 cigs per day Alcohol/day: Denies while ? ? Caffeine: under 200 mg? ? Drug Use: Marijuana in high school? ? Cis-gender, heterosexual woman What is your current living situation?: I presently have a place to live Problems where you live: no known problems In the past 12 months, utilities in danger of being shut off: no In past 12 months, lack of transportation kept you from medical appts, meetings, work, or getting things needed for daily living: no In the past 12 mos, have been you worried that your food would run out before you had money to buy more?: never true In the past 12 mos, the food you bought just didn't last and you didn't have money to buy more?: never true Smoking Status: Former smoker How often do you have a drink containing alcohol: never AUDIT-C Alcohol total score: 0 Non-prescribed substance use: denies use How often does anyone, including family, friends and others, physically hurt you : never How often does anyone, including family, friends and others, insult or talk down to you: never How often does anyone, including family, friends and others, threaten you with harm: never How often does anyone, including family, friends and others, scream or curse at you: never Little interest or pleasure in doing things: not at all Feeling down, depressed, or hopeless: not at all Meds Home Medications and Allergies Home Medications Medication Instructions Recorded Confirmed Type vits no.126-ferrous fum 1 tab PO QDAY PRN 04/18/23 11/21/23 History 28 mg iron-folic acid 800 mcg tablet (Classic ) acetaminophen 500 mg tablet 1,000 mg PO Q6H PRN 05/18/23 11/21/23 History (Tylenol Extra Strength) calcium carbonate (Tums) 200 mg PO BID 08/10/23 11/21/23 History famotidine 20 mg tablet (Pepcid) 20 mg PO QDAY 08/10/23 11/21/23 History Allergies Allergy/AdvReac Type Severity Reaction Status Date / Time codeine AdvReac Intermediate Vomiting Verified 11/21/23 02:14 tramadol AdvReac Intermediate upset Verified 11/21/23 02:14 stomach Results Labs Labs: Laboratory Results - last 24 hr 11/21/23 01:50 WBC 10.14 RBC 4.09 Hgb 13.1 Hct 37.9 MCV 93 MCH 32 MCHC 35 RDW Coeff of Marco 13.7 Plt Count 172 Neut % (Auto) 70.1 Lymph % (Auto) 22.0 [place] % (Auto) 6.1 Eos % (Auto) 1.2 Baso % (Auto) 0.2 Neut # (Auto) 7.11 H Lymph # (Auto) 2.23 [place] # (Auto) 0.60 Eos # (Auto) 0.12 Baso # (Auto) 0.02 Abs Immat Gran (auto) 0.04 Imm/Tot Granulo (auto) 0.4 Blood Type A Positive Antibody Screen NEGATIVE Vital Signs Vital Signs: Last Vital Signs Temp 97.8 F 11/21/23 02:06 Pulse 98 11/21/23 04:53 BP 104/54 L 11/21/23 04:53 Pulse Ox 85 L 11/21/23 03:02 Weight: 68.492 kg Height: 162.56 cm Anesthesia Procedures Intrathecal Start Time: 05:35 Stop Time: 05:40 Start Date: 11/21/23 Stop Date: 11/21/23 Reason for Block: procedure for pain Patient Position: sitting Performed By: Tonio Roche Prep: chlorhexidine gluconate Monitoring: blood pressure monitoring, continuous pulse oximetry and heart rate Approach: midline Vertebral Space: lumbar (1-5) Needle Type: Sprotte Injection Technique: single-shot Needle gauge: 24 Needle Length (cm): 10 cm Events: cerebrospinal fluid
--- NOTE | 2023-11-21 06:16 | W.PM.VAGDEL1 ---
Procedure Delivery date: 11/21/23 Procedure Done: Global Procedure Details: Maribell pérez 28 year-old G3 P 2001 admitted on 11/21/23 at 39 and 1/7 weeks gestation for spontaneous onset of labor at 6 cm. heart rate demonstrated baseline 130 bpm with moderate variability, + accelerations, - decelerations; a category I tracing. GBS negative SROM occurred at 0207 on 11/20 with clear fluid. Labor Analgesia: ITN x 2 Pitocin: No, only for active management of third stage Labor onset: 11/20 at 0100 Complete: 11/21 at 0513 Pushin/15 at 0513 heart tones during second stage were cat I with early deceleration during . At 0557 a viable male infant delivered in vertex OA presentation over intact via spontaneous vaginal delivery. was placed on maternal abdomen. Cord was clamped and cut after a 30-60 second delay. Nose and mouth were bulb suctioned. weight: pending. 8 at 1 minute and 9 at 5 minutes. Shoulder dystocia: No. Nuchal cord: No. Placenta delivered spontaneously and complete at 0602 with a 3 vessel cord. Complications: None. Mother and were stable after delivery. Laceration(s): None. Estimated blood loss: 50 mL. Sponge and needles counts are correct. Mother and were stable at the time of this note. Delivery monitor: external FHT Route of delivery:
[2023-11-21] MEDS: OXYTOCIN 30 unit/500 ML in NS 30 UNIT/500 ML BAG 300 UNIT IVPB (07:01)
[2023-11-21] MEDS: DOCUSATE SODIUM 100 MG CAPSULE PO (08:52)
[2023-11-21] MEDS: IBUPROFEN 600 MG TABLET PO ×2 (08:52→17:38)
[2023-11-21] MEDS: SODIUM CHLORIDE 0.9 % (FLUSH) 10 ML SYRINGE IVF (08:52)
[2023-11-21] MEDS: ACETAMINOPHEN 500 MG TABLET 1000 MG PO ×2 (14:27→21:29)
[2023-11-22 01:30] VITALS: BP 103/65; PULSE 91; RESP 14; TEMP 36.6; O2SAT 96
[2023-11-22] MEDS: IBUPROFEN 600 MG TABLET PO ×2 (01:31→10:41)
[2023-11-22 05:30] VITALS: BP 106/74; PULSE 82; RESP 18; TEMP 36.6; O2SAT 97
[2023-11-22 06:48] LABS: Hemoglobin* 11.5 gm/dL (12.0-16.0)
--- NOTE | 2023-11-22 07:28 | PM.OBDSVD1 ---
DS: Providers Provider Date Seen: 11/22/23 Date of admission: 11/21/23 00:40 Primary care physician: Aniceto Rodríguez MD Admitting Clinician: Tracy Marie MD Attending Physician on discharge: Tracy Marie MD Date of Discharge: 11/22/23 DS: Diagnosis Discharge Diagnosis (1) Lactating mother: Status: Acute (2) care following vaginal delivery: Status: Acute (3) Depression with anxiety: Status: Chronic Exam Narrative: Exam Narrative: GENERAL APPEARANCE:? normal affect, alert, no distress? MOOD:? appropriate? CHEST:? clear to auscultation and percussion? HEART:? regular rate and rhythm? ABDOMEN:? soft, non-tender the uterine fundus is U/2 and is appropriate for the stage of recovery.? PERINEUM:? mild edema of the perineum, there is a 1st degree laceration that is healing well.? EXTREMITIES:? normal and no edema? Const: Vital Signs, click to edit/add: Vital Signs - 24 hr 11/21/23 07:37 11/21/23 07:52 11/21/23 08:07 Temperature Pulse Rate 88 98 88 Pulse Rate [Pulse Oximeter] Respiratory Rate Blood Pressure 107/57 L 99/52 L 108/57 L Blood Pressure [Ri ght Arm] Pulse Oximetry Oxygen Delivery Me thod 11/21/23 10:45 11/21/23 15:40 11/21/23 21:54 Temperature 98.7 F 98.2 F 98.0 F Pulse Rate Pulse Rate [Pulse Oximeter] 88 83 92 Respiratory Rate 16 16 16 Blood Pressure Blood Pressure [Ri ght Arm] 108/69 107/69 97/63 Pulse Oximetry 96 97 96 Oxygen Delivery Me thod Room Air Room Air Room Air 11/22/23 01:30 11/22/23 05:30 Temperature 97.8 F 97.8 F Pulse Rate Pulse Rate [Pulse Oximeter] 91 82 Respiratory Rate 14 18 Blood Pressure Blood Pressure [Ri ght Arm] 103/65 106/74 Pulse Oximetry 96 97 Oxygen Delivery Me thod Room Air Room Air OB - DS: Summary Hospital Course Hospital Course: The patient is a 28 year old G 3 P 3 at 39.1 weeks gestation that was admitted to the Center on 11/21/23 for spontaneous labor. She had an uncomplicated vaginal delivery. She delivered a viable male . She is breast feeding and it is going ok, but feels that baby is likely tongue tied. is planning to evaluate today. the patient has done well. Her pain is well controlled with current medications.? She has no new complaints.? Urinary output is adequate and she is voiding without difficulty.? Has a good appetite, is tolerating a general diet, is passing flatus, and has not had a bowel movement.? Has scant amount of rubra lochia.? She is ambulating well. Peripartum Data delivery method: Vaginal Laceration description: Perineal - 1st Degree (not repaired) Episiotomy description: None complications: none Infant Gender: Male Infant Discharge Plan: Home Status at Discharge Functional status at discharge: independent ambulation Overall status at discharge: patient is progressing back to baseline Time Spent with Patient Time attestation: Total time spent providing and/or coordinating discharge services: Discharge Plan Discharge Disposition: Home, Self-Care Date of Admission: 11/21/23 00:40 Attending Provider on Discharge: Dionna Kiran Primary Care Provider: Aniceto Rodríguez Condition: Stable Anticipated Discharge Date/Time: 11/22/23 12:00 Discharge Medications: New docusate sodium 100 mg Capsule 100 mg PO DAILY Qty: 90 0RF Rx Instructions: Take 1-2 tablets daily as needed for constipation. ibuprofen 600 mg Tablet 600 mg PO Q6H PRNQty: 30 0RF Continued famotidine [Pepcid] 20 mg tablet 20 mg PO QDAY calcium carbonate [Tums] 200 mg calcium (500 mg) tablet,chewable 200 mg PO BID Classic 28 mg iron- 800 mcg tablet 1 tab PO QDAY PRN acetaminophen [Tylenol Extra Strength] 500 mg tablet 1,000 mg PO Q6H PRN [id number]-[id number] [Fioricet] 50-300-40 mg capsule 1 cap PO TID PRN (Reason: pain) Qty: 30 0RF Rx Instructions: OK to substitute tablets. Discharge Orders: Discharge Order (Routine); Ordered 11/22/23 Ordered By: Dionna Kiran Patient Education: OB Vaginal/Breast Feeding Additional Instructions: Discharge instructions were reviewed with the patient including signs and symptoms of infection and home going medications.? Lifting Restrictions: 20 pounds for 6? weeks? ?? Do not drive while taking narcotic pain meds.? Off Work or School for 6 weeks.? ?? Symptoms to report to doctor:? -Bleeding that saturates more than one pad per hour? -Passing clots larger than the size of a golf ball? -Pain not relieved by prescribed medication? -Fever above 100.4 degrees Fahrenheit? -A foul vaginal odor? -Difficulty in emotions, mood and functions? -Thoughts of hurting yourself and/or ? -Painful, reddened area in your breast? -Any drainage, redness or tenderness in your IV/epidural site? -Severe headache that doesn't improve after taking medications? -Changes in vision, including temporary loss of vision, blurred vision, and/or light sensitivity? -Upper abdominal pain (usually under ribs on the right side)? -Decrease in urination or painful, frequent urinating? -Chest pain? -Shortness of breath? -Tenderness or pain with redness and/swelling in the calf(s) of your leg? ?? Follow Up in clinic in 2 and 6 weeks.? ?? consultation services are available to all mothers and babies for the first year after delivery.? To make an appointment, please call [phone].? Follow Up Appointments: [facility] [Provider Group] Aniceto Rodríguez MD [Primary Care Provider] - Forms: MyHealth Info Instructions Discharge Comments: Discharged in stable condition
--- NOTE | 2023-11-22 08:49 | PM.ANPOST ---
Post Anesthesia Note Post Anesthesia Note Patient seen: Inpatient Respiratory Status: adequate Cardiovascular Status: adequate Mental Status: baseline Pain: adequate Temp: baseline Anesthetic awareness: N/A Complications: none Follow care: none
[2023-11-22 10:39] VITALS: BP 101/64; PULSE 97; RESP 16; TEMP 37.2; O2SAT 96
[2023-11-22] MEDS: DOCUSATE SODIUM 100 MG CAPSULE PO (10:41)
[2023-11-23 01:29] LABS: Rapid Plasma Reagin (RPR) Non Reactive (Non Reactive)
== END 2023-11-22 12:15 | disposition home or self-care (01) | DRG 807 ==
PROVIDERS: Admitting Provider Obstetrics & Gynecology; PCP Family Medicine; Visit Provider Obstetrics & Gynecology
DX: O36.63X0 Maternal care for excessive fetal growth, third trimester, not applicable or unspecified (principal); Z37.0 Single live birth; O70.0 First degree perineal laceration during delivery; O99.344 Other mental disorders complicating childbirth; F41.8 Other specified anxiety disorders; Z3A.39 39 weeks gestation of pregnancy; Z82.79 Family history of other congenital malformations, deformations and chromosomal abnormalities; Z86.39 Personal history of other endocrine, nutritional and metabolic disease
CPT/HCPCS: 01967; 36415; 51798; 85018; 85025; 86592; 86850; 86900; 86901; A9270; J2371; J3010; J7120

== ENCOUNTER 2024-04-22 11:05 | Outpatient (CLI) | payer MEDICAID, SELFPAY ==
--- NOTE | 2024-04-22 14:41 | P.LACCB_ITS ---
Consult Note - Mom Date of Visit Date of visit: 04/22/24 Reason for consultation: Assistance Needed and Other (questioning milk supply and baby's nursing behavior) Visit Code: Visit Patient's Information Phone number: [phone] Para: 3 Delivery Information Gestational Age: 39+1 Weight: 3.95 kg Baby's Information Medications: none Baby's Age at Visit: 5 mos Baby's Provider or Clinic: [facility] Jaundice: No Past Experience Past Experience: No Current Frequency of Day Feedings: every 2 hours, nursing strike behv the last 2 days so mom concerned Frequency of Night Feedings: every 2-4 hours Both Breasts: Yes Suck: strong, comfortable Latch: wide, deep Length of Time: 3-20 min ea side, varies a lot Goals: at least 1 year Pumping Pumping: Yes (a little, gets about 5 oz total if not nurse) Supplementing EBM Supplement: No Formula Supplement: No Baby Elimination Number of Wet Diapers a Day: each feeding Number of BM a Day: 1 every 3-5 days; has been this pattern for awhile now Breast/Nipple Condition Breast Information: Breasts are symmetrical with rounded lower quadrants, intramammary distance is less than 1.5 inches. No erythema. Nipples are supple, everted prior to feeding. Nipples measured per mom's request for flange sizing: R nipple 14 mm; L nipple 15 mm Breast Shape: Round Engorgement: No Maternal Nipple Condition - Left: Common Nipple Maternal Nipple Condition - Right: Common Nipple Sore Nipples: No Baby Assessment Skin: Normal Tongue/frenulum: Normal/elastic Palate: Average Lips: Relaxed Jaw Alignment: Symmetrical Mucosa: [place], moist Onsite Observation Pre-Feed weight: 7.52 kg (50th %ile) Post-Feed weight: 7.662 kg Milk Transferred (mL): 142 (nursed 8 minutes on mom's right side, and 3 minutes on left side) Position: Cradle Attachment/latch-on achieved: Easily (Does get distracted when mom and I try to talk during feeding; did better with a quiet space) Suck pattern: Suck burst and normal rest Swallow: Audible, consistent and Gulping Behavior following feed: Alert, content Pre-Nursing Left Nipple: Within Normal Limits Pre-Nursing Right Nipple: Within Normal Limits Post-Nursing Left Nipple: Within Normal Limits Post-Nursing Right Nipple: Within Normal Limits Assessments/Interventions Assessments/Interventions: Yandel transferred 142ml/4.7 oz breast milk in 11 minutes Reassured mom her milk supply is good Yandel may be ready to space feedings out to every 3-4 hours vs every 2 now that he is older, efficient with nursing and more distracted with the world. Mom worried about milk supply - discussed her food/fluid intake to support her body continuing to make milk Mom knows her left breast makes less milk than her right; can start on left side more often to help stimulate supply. Can also use Haakaa after nursing on the left and while nursing on the right to help stimulate supply. Discussed pumping once a day if she desires to build supply; but her body is regulating to what baby needs. Education provided: Supply/demand nature of milk supply and Pumping for milk management Handouts Provided: Spectra cycle pumping for maximal milk removal when needing to pump Feeding Plan: Offer baby breast every 3-4 hours during the day; can offer at 2 hours if he acts hungry but he is likely spreading feedings out more now that he is older Offer both breasts with each feeding, especially if he is feeding less frequently, as he may want a larger volume with each feed Mom has stored up colostrum/transitional milk - asking if it's ok to use. Yes; great to use for added immune boost especially with winter illnesses upon us. Follow-Up Suggested follow up: Appointment as needed Recommend baby be seen by provider for:: 6 month [facility] Time Spent Time spent with patient (min): 70 (Reviewing EMR and face to face with mom and baby)
== END 2024-04-22 11:06 | disposition home or self-care (01) ==
PROVIDERS: PCP Family Medicine; Visit Provider Obstetrics & Gynecology
DX: Z39.1 Encounter for care and examination of lactating mother (principal)
CPT/HCPCS: G0463

== ENCOUNTER 2024-10-14 08:10 | Outpatient (CLI) | payer MEDICAID, SELFPAY | END 2024-10-14 08:11 | disposition home or self-care (01) | LOC: NFLDREF 10-17 20:49 | PROVIDERS: PCP Family Medicine; Referring Provider Family Medicine; Visit Provider Family Medicine | DX: Z11.1 Encounter for screening for respiratory tuberculosis (principal) | CPT/HCPCS: 86480 ==

== ENCOUNTER 2024-11-11 09:13 | Outpatient (CLI) | payer MEDICAID, SELFPAY | END 2024-11-11 09:14 | disposition home or self-care (01) | PROVIDERS: PCP Family Medicine; Visit Provider Obstetrics & Gynecology | DX: N93.8 Other specified abnormal uterine and vaginal bleeding (principal); Z13.6 Encounter for screening for cardiovascular disorders | CPT/HCPCS: 80061; 82728 ==